=== PATIENT | female | born 1960 | race Caucasian/White ===

== ENCOUNTER 2019-04-19 23:58 | Emergency (ER) | payer OTHER ==
[~2019-04-19] VITALS: Ht 154.9 cm; Wt 75.7 kg
[2019-04-20 00:03] VITALS: Ht 154.9 cm; Wt 75.7 kg
[2019-04-20 01:07] LABS: BASOPHIL % 0.4 % (0-2); PLATELET COUNT 252 x10^3mcL (130-400); RED CELL DISTRIBUTION WIDTH 13.7 % (11.5-14.5)
[2019-04-20 01:21] LABS: CALCIUM 8.6 mg/dL (8.5-10.1); CARBON DIOXIDE 30.8 mmol/L (21-32); CHLORIDE SERUM 106 mmol/L (98-107); CREATININE SERUM 0.8 mg/dL (0.6-1.0); GFR1 > 60 mL/min; GLUCOSE SERUM 136 mg/dL (74-106); POTASSIUM SERUM 3.9 mmol/L (3.5-5.1); SODIUM SERUM 142 mmol/L (136-145)
[2019-04-20 01:26] LABS: ALBUMIN 3.7 g/dL (3.4-5.0); ALKALINE PHOSPHATASE 104 U/L (46-116); ALT/SGPT 39 U/L (14-59); AMYLASE 57 U/L (25-115); AST/SGOT 19 U/L (15-37); BILIRUBIN TOTAL 0.8 mg/dL (0.20-1.00); LIPASE 192 IU/L (73-393); TOTAL PROTEIN, SERUM 7.5 g/dL (6.4-8.2)
[2019-04-20 02:11] VITALS: BP 151/86
== END 2019-04-20 02:11 | disposition home or self-care (01) ==
LOC: ED 23:58
PROVIDERS: Emergency Medicine
DX: R10.9 Unspecified abdominal pain (principal)
CPT/HCPCS: 36415; J1885

== ENCOUNTER 2019-04-27 17:12 | Emergency (ER) | payer OTHER ==
[~2019-04-27] VITALS: Ht 154.9 cm; Wt 74.8 kg
[2019-04-27 17:16] VITALS: Ht 154.9 cm; Wt 74.8 kg
[2019-04-27 17:50] LABS: microscopic required? YES; urine erythrocyte 3+ (NEGATIVE)
[2019-04-27 18:06] VITALS: BP 177/90
== END 2019-04-27 18:06 | disposition home or self-care (01) ==
LOC: ED 17:12
PROVIDERS: Emergency Medicine
DX: N39.0 Urinary tract infection, site not specified (principal)

== ENCOUNTER 2019-07-25 18:15 | Observation (INO) | payer OTHER ==
[~2019-07-25] VITALS: Ht 157.5 cm; Wt 75.5 kg
[2019-07-25 18:22] VITALS: Ht 157.5 cm; Wt 75.5 kg
[2019-07-25 19:30] LABS: BASOPHIL % 0.4 % (0-2); PLATELET COUNT 290 x10^3mcL (130-400); RED CELL DISTRIBUTION WIDTH 13.6 % (11.5-14.5)
[2019-07-25 19:38] LABS: ALBUMIN 3.9 g/dL (3.4-5.0); ALKALINE PHOSPHATASE 94 U/L (46-116); ALT/SGPT 45 U/L (14-59); AST/SGOT 20 U/L (15-37); BILIRUBIN TOTAL 1.1 mg/dL (0.20-1.00); CARBON DIOXIDE 25.4 mmol/L (21-32); CHLORIDE SERUM 103 mmol/L (98-107); CREATININE SERUM 0.7 mg/dL (0.6-1.0); GFR1 > 60 mL/min; GLUCOSE SERUM 100 mg/dL (74-106); LIPASE 317 IU/L (73-393); POTASSIUM SERUM 3.2 mmol/L (3.5-5.1); SODIUM SERUM 141 mmol/L (136-145); TOTAL PROTEIN, SERUM 7.8 g/dL (6.4-8.2)
[2019-07-25 19:44] LABS: CALCIUM 8.9 mg/dL (8.5-10.1)
[2019-07-25 22:38] VITALS: BP 144/83
[2019-07-26 05:18] VITALS: BP 128/83
[2019-07-26 06:49] LABS: BASOPHIL % 0.2 % (0-2); PLATELET COUNT 268 x10^3mcL (130-400); RED CELL DISTRIBUTION WIDTH 13.8 % (11.5-14.5)
[2019-07-26 07:08] LABS: ALBUMIN 3.4 g/dL (3.4-5.0); ALKALINE PHOSPHATASE 87 U/L (46-116); ALT/SGPT 40 U/L (14-59); AST/SGOT 18 U/L (15-37); BILIRUBIN TOTAL 1.64 mg/dL (0.20-1.00); CALCIUM 8.7 mg/dL (8.5-10.1); CARBON DIOXIDE 27.6 mmol/L (21-32); CHLORIDE SERUM 106 mmol/L (98-107); CREATININE SERUM 0.7 mg/dL (0.6-1.0); GFR1 > 60 mL/min; GLUCOSE SERUM 96 mg/dL (74-106); MAGNESIUM 2.2 mg/dL (1.8-2.4); POTASSIUM SERUM 4.1 mmol/L (3.5-5.1); SODIUM SERUM 140 mmol/L (136-145); TOTAL PROTEIN, SERUM 6.7 g/dL (6.4-8.2)
[2019-07-26 09:21] VITALS: BP 116/76
[2019-07-26 12:39] VITALS: BP 138/88
[2019-07-26] MEDS ORDERED: CIPRO500 MG PO (16:42)
[2019-07-26 16:51] VITALS: BP 138/88
[2019-07-26 17:08] LABS: UA SPECIFIC GRAVITY <=1.005 (1.005-1.035); microscopic required? YES; urine erythrocyte 1+ (NEGATIVE)
[2019-07-26 17:36] VITALS: BP 139/86
== END 2019-07-26 17:55 | disposition home or self-care (01) ==
LOC: ED 18:15 → DU 20:26
PROVIDERS: Emergency Medicine; Internal Medicine; ADMIT Internal Medicine Pulmonary Disease
DX: R07.2 Precordial pain (principal); R11.0 Nausea; R42 Dizziness and giddiness; R10.811 Right upper quadrant abdominal tenderness
CPT/HCPCS: 83880; G0378; Q0092